=== PATIENT | male | born 1965 | race African-American/Black ===

== ENCOUNTER 2024-07-24 15:24 | Observation (INO) | payer BC, SELFPAY ==
[2024-07-24 15:58] VITALS: BMI 45.5
[2024-07-24 16:00] VITALS: O2SAT 96
[2024-07-24 16:10] VITALS: BP 154/100; PULSE 84; RESP 18; TEMP 36.9; O2SAT 97
--- NOTE | 2024-07-24 16:20 | ECHOCS_ITS ---
Reason For Study: CONGESTIVE HEART FAILURE Procedure This was a 2D Doppler, Color Flow transthoracic echocardiogram. The study was technically difficult. Contrast injection was performed. Exam performed portable in patient room. Left Ventricle Mild LV concentric hypertrophy. Mildly dilated left ventricular cavity. Generalized hypokinesis with moderate to severe LV systolic dysfunction. Estimated LVEF 35 to 40%. Right Ventricle Normal right ventricle. Atria The left atrium is severely enlarged. The right atrium is mildly enlarged. Mitral Valve Mild mitral annular calcification. Mild-Moderate (1-2+) mitral valve insufficiency. Tricuspid Valve Normal tricuspid valve. Aortic Valve The aortic valve is not well visualized in the short axis view. Aortic sclerosis, no stenosis. Pulmonic Valve The pulmonic valve is not well visualized. Great Vessels The aortic root is not well visualized. Pericardium/Pleural No pericardial effusion. Medication Diluted definity 3ml given slow IV push to enhance endocardial definition. MMode/2D Measurements & Calculations LVIDd: 6.1 cm IVSd: 1.5 cm LVOT diam: 2.2 cm LVIDs: 4.1 cm LVPWd: 1.3 cm RVDd: 4.4 cm FS: 32.9 % LVOT area: 3.8 cm2 asc Aorta Diam: 3.8 cm LAV(MOD-bp): 83.0 ml LVAd ap4: 50.6 cm2 LAV(MOD-bp) Indexed: 30.0 ml/m2 LVLd ap4: 9.4 cm LAV(MOD-sp2): 89.9 ml EDV(MOD-sp4): 218.5 ml LAV(MOD-sp4): 74.3 ml EDV(sp4-el): 230.4 ml LVAs ap4: 38.7 cm2 LVLs ap4: 8.7 cm ESV(MOD-sp4): 141.5 ml ESV(sp4-el): 145.4 ml EF(MOD-sp4): 35.2 % EF(sp4-el): 36.9 % LVAd ap2: 46.2 cm2 SV(MOD-sp4): 77.0 ml SV(MOD-sp2): 59.9 ml LVLd ap2: 8.8 cm SI(MOD-sp4): 27.8 ml/m2 SI(MOD-sp2): 21.6 ml/m2 EDV(MOD-sp2): 193.7 ml EDV(sp2-el): 205.3 ml LVAs ap2: 36.5 cm2 LVLs ap2: 8.2 cm ESV(MOD-sp2): 133.8 ml ESV(sp2-el): 138.6 ml EF(MOD-sp2): 30.9 % SV(sp4-el): 85.1 ml Ao sinus diam: 3.[address] Junction: 2.6 cm LA dimension(2D): 4.6 cm LA A4 area: 23.2 cm2 RA A4 area: 19.3 cm2 TAPSE: 2.2 cm Time Measurements MV dec time: 0.15 sec Doppler Measurements & Calculations MV E max sammy: 94.5 cm/sec Lat Peak E' Sammy: 6.0 cm/sec Med Peak E' Sammy: 8.5 cm/sec E/E' lat: 15.7 E/E' med: 11.2 Ao V2 max: 135.3 cm/sec LV V1 max: 98.3 cm/sec SV(LVOT): 67.3 ml Ao max P.6 mmHg LV V1 max P.9 mmHg Ao V2 mean: 105.2 cm/sec LV V1 mean P.5 mmHg Ao mean P.9 mmHg LV V1 mean: 76.7 cm/sec Ao V2 VTI: 23.7 cm LV V1 VTI: 17.5 cm AV (velocity ratio): 0.74 PITER(I,D): 2.8 cm2 PITER(V,D): 2.8 cm2 PA V2 max: 90.3 cm/sec ECHO/Echo Complete W/ Contrast Interpretation Summary Mild LV concentric hypertrophy. Mildly dilated left ventricular cavity. General ized hypokinesis with moderate to severe LV systolic dysfunction. Estimated LVEF 35 to 40%. The left atrium is severely enlarged. Mild-Moderate (1-2+) mitral valve insufficiency. Aortic sclerosis, no stenosis. The study was technically difficult. Ordering Physician: Antoinette John Referring Physician: Kemi Miranda D.O. Performed By: Stephanie Eller RDCS
--- NOTE | 2024-07-24 16:23 | EKG12_ITS ---
Test Reason : CHF Blood Pressure : */* mmHG Vent. Rate : 90 BPM Atrial Rate : 90 BPM P-R Int : 210 ms QRS Dur : 96 ms QT Int : 392 ms P-R-T Axes : 60 -42 83 degrees QTcB Int : 479 ms Sinus rhythm with 1st degree A-V block Left axis deviation Minimal voltage criteria for LVH, may be normal variant ( R in aVL ) Abnormal ECG Confirmed by Jus Caputo ([id number]), online editor SOL MOROCHO ([id number]) on 07/27/2024 12:21:54 PM Referred By: Antoinette John Confirmed By: Jus Caputo
[2024-07-24 16:29] VITALS: O2SAT 97
--- NOTE | 2024-07-24 17:17 | HP.PCM.HOS_ITS ---
[facility] - General General Date of Admission: 07/24/24 Date of Service: 07/24/24 Chief Complaint: Shortness of breath HPI Narrative CONSTANCE CORONADO, is a 58 M with past medical history of morbid obesity [BMI 45.5], VIELKA, hypertension, prediabetes, vitamin D deficiency, dyslipidemia, erectile dysfunction who was transferred from [place] ED for concerns regarding worsening shortness of breath for the last few weeks. Per the patient he has been noticing progressive shortness of breath with associated orthopnea and paroxysmal nocturnal dyspnea for the last 3 to 4 weeks. He has a history of VIELKA but has been inconsistently using his CPAP machine. He says he only started using it few days back. He is previously prescribed diuretics but was not taking them regularly. No history of coronary artery disease, does not smoke, no drug use, occasional alcohol use. In the [place] ED, his NT proBNP was elevated to 700s, high-sensitivity troponin was mildly elevated but did not increment on serial evaluation. Given the concerns for heart failure he was transferred to [facility] in the PCU. [facility] Medical History (Updated 07/24/24 @ 17:[address] Antoinette John MD) Diabetes Asthma CPAP (continuous positive airway pressure) dependence Sleep apnea Coronary artery disease Home Medications ?Medication ?Instructions ?Recorded ?Last Taken ?Type albuterol sulfate 2.5 mg/3 mL 2.5 mg inhalation Q6H PRN 07/24/24 Unknown History (0.083 %) solution for nebulization shortness of breath or wheezing albuterol sulfate 90 mcg/actuation 2 puff inhalation Q4H PRN PRN 07/24/24 Unknown History aerosol inhaler wheezing ergocalciferol (vitamin D2) 1,250 1,250 mcg PO QWEEK suppelemnt 07/24/24 Unknown History mcg (50,000 unit) capsule loratadine 10 mg tablet 10 mg PO DAILY allergies 07/24/24 Unknown History losartan 50 mg tablet 50 mg PO DAILY heart 07/24/24 Unknown History metformin 500 mg tablet,extended 500 mg PO DAILY diabetes 07/24/24 Unknown History release 24 hr rosuvastatin 10 mg tablet 10 mg PO QHS cholesterol 07/24/24 Unknown History sildenafil 100 mg tablet 50 - 100 mg PO Q24H PRN intercourse 07/24/24 Unknown History Allergy/AdvReac Type Severity Reaction Status Date / Time No Known Allergies Allergy Verified 07/24/24 16:01 Family History Other Diabetes Social History (Updated 07/24/24 @ 16:09 by Ruby Leiva) household members: spouse and family housing: house Smoking Status: Never smoker ROS Review of Systems ROS Unobtainable: Denies due to encephalopathy, due to endotracheal tube, due to mental condition, due to mental status or other Constitutional Constitutional: Reports change in weight, malaise and night sweats Eyes Eyes: Denies blurry vision, change in eye color, change in vision, discharge from eye(s), double vision, erythema, eye pain, loss of vision or other ENT HEENT: Denies abnormal hearing, dysphagia, ear pain, epistaxis, headache(s), hearing loss, nasal congestion, nasal discharge, post nasal drip, sinus pressure, sore throat or other Cardiovascular Cardiovascular: Reports dyspnea on exertion, edema and lightheadedness Respiratory/Chest Respiratory/Chest: Denies cough, dyspnea, excessive phlegm production, hemoptysis, productive cough, shortness of breath at rest, shortness of breath with exertion, wheezing or other Gastrointestinal Gastrointestinal: Denies abdominal pain, coffee ground emesis, constipation, diarrhea, dyspepsia, hematemesis, hematochezia, loose stools, melena, nausea, vomiting or other Genitourinary Genitourinary: Denies burning urination, difficulty urinating, dysuria, hematuria, nocturia, urinary frequency, urinary hesitancy, urinary incontinence, urinary urgency or other Musculoskeletal Musculoskeletal: Denies arthralgias, back pain, joint pain, joint stiffness, joint swelling, myalgias, neck pain or other Neurologic Neurologic: Denies abnormal gait, abnormal speech, confusion, disequilibrium, dizziness, focal weakness, headache(s), numbness, paresthesias, seizure-like activity, seizures, syncope, tingling, tremor(s) or other Psychiatric Psychiatric: Denies anxiety, depression, homicidal ideation, suicidal ideation or other Endocrine Endocrinology: Denies change in body appearance, cold intolerance, excessive sweating, heat intolerance, polydipsia, polyuria or other Hematologic/Lymphatic Hematologic/Lymphatic: Denies anemia, easy bleeding, easy bruising, lymphadenopathy or other Allergic/Immunologic Allergic/Immunologic: Denies rhinitis, hives, eczemia, asthma or other Vital Signs Vital Signs Vital Signs: 07/24/24 16:00 07/24/24 16:10 07/24/24 16:29 Temperature 98.5 F Temperature Source Oral Pulse Rate 84 Respiratory Rate 18 Respiratory Effort Non-Labored Respiratory Depth Deep Respiratory Pattern Tachypnea Blood Pressure 154/100 H Blood Pressure Mean 118 Blood Pressure Source Monitor Blood Pressure Position Semi-Fowlers Blood Pressure Location Right Arm Pulse Ox 96 97 97 Oxygen Delivery Method Nasal Cannula Room Air Room Air Oxygen Flow Rate (L/min) 2 Weight Weight: 354 lb 11.58 oz Body Mass Index (BMI) 45.5 Physical Exam Const alert, oriented x3 and no apparent distress HEENT normocephalic Neck no lymphadenopathy Resp Resp Narrative: Breath sounds are in bilaterally diminished, no crepitations heard Cardio regular rate and regular rhythm Cardio Narrative: No murmurs no JVD Extremity Extremity Narrative: Mild bilateral pedal edema Neuro oriented x3, CN's II-XII intact bilaterally, moves all extremities and no focal motor deficits Psych affect normal Results Medical Records Data Attestation: I reviewed the patient's medical records Lab / Micro Data Attestation: I reviewed the patient's lab results. Assessment & Plan Assessment/Plan (1) Shortness of breath: PLAN: Plan 58-year-old gentleman with history of morbid obesity, VIELKA, is being admitted for further evaluation of shortness of breath. Given his presentation and elevated NT proBNP levels likely reason is acute decompensated heart failure. The precipitating event could be his underlying VIELKA, there are no features of arrhythmia/ischemic pathology at this time. Other reason to be hypertensive heart disease #Acute heart failure -Received IV Lasix 40 mg in [place] ED -IV Lasix 40 mg tomorrow morning -Repeat proBNP levels -Echocardiogram for evaluation of cardiac function -Salt restricted heart healthy diet -Cardiology referral versus outpatient consultation based on echocardiogram findings -COVID swab, influenza swab #VIELKA -Restart home CPAP therapy while admitted -Further evaluation with sleep study at the time of/after discharge #Obesity -Outpatient evaluation for weight loss management #Prediabetes -HbA1c levels -Close monitoring of blood sugars -Hold outpatient metformin #Hypertension -Continue losartan 50 mg daily [home medication #DVT prophylaxis -Enoxaparin 40 mg twice daily -Encourage mobilization
[2024-07-24 17:23] LABS: BNP,B-Type NATRIURETIC PEPTIDE 168.2 pg/mL (0-100)
[2024-07-24 19:55] VITALS: BP 158/100; PULSE 100; RESP 18; TEMP 36.6; O2SAT 98
[2024-07-24] MEDS: Atorvastatin Calcium 20 MG Tablet PO (21:39)
[2024-07-24] MEDS: Enoxaparin 40 MG/0.4 ML Syringe SC (21:39)
[2024-07-24 23:05] VITALS: PULSE 86; RESP 16; O2SAT 97
[2024-07-24] MEDS: Albuterol 2.5 MG/3 ML VIAL.NEB. INHALATION (23:05)
[2024-07-24 23:15] VITALS: PULSE 88; RESP 18; O2SAT 95
[2024-07-25 02:00] VITALS: PULSE 82; RESP 32; O2SAT 93
[2024-07-25 02:15] VITALS: BP 134/91; PULSE 86; RESP 18; TEMP 36.7; O2SAT 97
[2024-07-25 02:54] VITALS: BMI 45.4
[2024-07-25 07:14] LABS: Absolute Lymphocyte Count 2.15 X10^3/uL (0.83-4.51); Absolute Neutrophil Count 4.4 X10^3/uL (2.0-7.7); Basophil# 0.04 X10^3/uL; Basophil% 0.5 % (0-1); Eosinophil# 0.29 X10^3/uL; Eosinophils% 3.8 % (0-5); Hematocrit 45.6 % (40-54); Hemoglobin 14.4 g/dL (13.0-16.5); Lymphocyte # 2.15 X10^3/ul (0.83-4.51); Mean Corp Hgb Conc 31.6 g/dL (32-36); Mean Corpuscular Hgb 27.9 pg (27.0-32.0); Mean Corpuscular Volume 88.4 fL (80-94); Mean Platelet Vol. 9.2 fl (6.2-12.0); Monocyte# 0.75 X10^3/uL; Monocyte% 9.8 % (0-10); NRBC Flagged by Analyzer 0 % (0-5); Neutrophil # 4.44 X10^3/uL (2.7-7.7); Neutrophil % 57.6 % (47-70); Platelet Count 298 K/mm3 (150-450); RBC Distribution Width CV 13.2 % (11.6-14.6); RBC Distribution Width SD 42.5 fl (35.1-43.9); Red Blood Count 5.16 M/mm3 (4.6-6.2); White Blood Count 7.7 K/mm3 (4.4-11.0)
[2024-07-25 07:38] LABS: ALB/GLOB Ratio 0.9 RATIO (0.9-2.4); AST(SGOT) 21 U/L (15-37); Alanine Aminotransfer ALT/SGPT 46 U/L (16-61); Albumin, Serum 3.1 g/dL (3.2-5.0); Alkaline Phosphatase 60 U/L (45-117); Anion Gap 3 (5-15); BUN 13 mg/dL (7-18); Bilirubin, Direct 0.25 mg/dL (0.00-0.30); Calcium,Total 8.5 mg/dL (8.5-10.1); Chloride 106 mmol/L (98-107); Cholesterol 114 mg/dL (200); Creatinine, Serum 1.18 mg/dL (0.70-1.30); EST Glomerular Filtration Rate 67 mL/min (>60); Est Glom Filt Rate - Afr Amer 81 mL/min (>60); Estimated Creatinine Clearance 109.56 ml/min; Globulin 3.5 g/dL (2.2-4.2); Glucose 145 mg/dL (74-106); High Density Lipoprotein 32 mg/dL; Magnesium 2.1 mg/dL (1.6-2.6); Phosphorus 3.9 mg/dL (2.5-4.9); Potassium 4.1 mmol/L (3.5-5.1); Protein, Total 6.6 g/dL (6.4-8.2); Sodium Level 139 mmol/L (136-145); Triglycerides 88 mg/dL; Very Low Density Lipoprotein 18 mg/dL (5-40)
--- NOTE | 2024-07-25 07:51 | PN.HOSP_ITS ---
Reason for Visit Reason for Visit: Diagnoses Shortness of breath (07/24/24) Subjective Subjective Breathing well. Had been short of breath 3 weeks prior to presentation. Objective Data Objective Data Vital Signs: Vital Signs Temp Pulse Resp BP Pulse Ox O2 Del Method O2 Flow Rate 36.7 C 86 18 134/91 H 97 CPAP 2 07/25/24 02:15 07/25/24 02:15 07/25/24 02:15 07/25/24 02:15 07/25/24 02:15 07/25/24 02:15 07/24/24 23:05 FiO2 21 07/25/24 02:00 Oxygen Flow Rate (L/min) 2 Oxygen Delivery Method CPAP Weight: 160.5 kg Body Mass Index (BMI) 45.4 Intake & Output: Intake and Output for Last 24 Hours 07/23/24 07/24/24 07/25/24 23:59 23:59 23:59 Intake Total 595 / 595 120 / 120 Output Total 900 / 900 Balance -305 / -305 120 / 120 Lab / Micro Data 07/25/24 06:35 07/25/24 06:35 Labs: Laboratory Results - last 24 hr 07/24/24 16:40: B-Natriuretic Peptide 168.2 H 07/25/24 06:35: WBC 7.7, RBC 5.16, Hgb 14.4, Hct 45.6, MCV 88.4, MCH 27.9, MCHC 31.6 L, RDW Std Deviation 42.5, RDW Coeff of Leigh Ann 13.2, Plt Count 298, MPV 9.2, Immature Gran % (Auto) 0.300, Neut % (Auto) 57.6, Lymph % (Auto) 28.0, Bennett % (Auto) 9.8, Eos % (Auto) 3.8, Baso % (Auto) 0.5, Absolute Neuts (auto) 4.4, Absolute Lymphs (auto) 2.15, Nucleated RBC % 0, Sodium 139, Potassium 4.1, Chloride 106, Carbon Dioxide 30.0, Anion Gap 3 L, BUN 13, Creatinine 1.18, Estim Creat Clear Calc 109.56, Est GFR (MDRD) Af Amer 81, Est GFR (MDRD) Non-Af 67, BUN/Creatinine Ratio 11.0, Glucose 145 H, Calcium 8.5, Phosphorus 3.9, Magnesium 2.1, Total Bilirubin 0.90, Direct Bilirubin 0.25, AST 21, ALT 46, Alkaline Phosphatase 60, Total Protein 6.6, Albumin 3.1 L, Globulin 3.5, Albumin/Globulin Ratio 0.9, Triglycerides 88, Cholesterol 114, LDL Cholesterol 64, VLDL Cholesterol 18, HDL Cholesterol 32 L, TSH 1.060 Micro: Microbiology 07/24/24 16:31 Mucosa - Nasopharyngeal Coronavirus COVID-19 PCR - Final Physical Exam Const alert and no apparent distress Constitutional Narrative: no respiratory distress. no conversational dyspnea. HEENT head/scalp atraumatic and moist oral mucous membranes Resp normal respiratory effort, no retractions, no use of accessory muscles and clear to auscultation bilaterally Cardio regular rate, regular rhythm, S1 normal heart sound and S2 normal heart sound GI normal to inspection, nondistended, normoactive bowel sounds, soft to palpation and non-tender Extremity normal to inspection and no clubbing, cyanosis or edema Neuro Sensorium / Orientation: awake and alert Assessment & Plan Assessment/Plan (1) Shortness of breath: PLAN: Plan Acute HFrEF * IV furosemide * Echo shows and EF of 35-40%. No prior in [employer]. [email or web address] is not functioning at this time, though the patient denies prior cardiac history. * Already on losartan 50/d, Start carvedilol 07/26 * Fluid restrict. * Follow up with cardiology. CHronic conditions: * VIELKA-Restart home CPAP therapy while admitted-Further evaluation with sleep study at the time of/after discharge * Obesity-Outpatient evaluation for weight loss management * Prediabetes-HbA1c levels-Close monitoring of blood sugars-Hold outpatient metformin * Hypertension-Continue losartan 50 mg daily [home medication DVT prophylaxis-Enoxaparin 40 mg twice daily Charges/Coding Visit Charges Inpatient E&M: 01063 Subs Hosp L2
[2024-07-25 07:53] VITALS: O2SAT 95
[2024-07-25 08:07] VITALS: BP 145/86; PULSE 67; RESP 18; TEMP 36.6; O2SAT 95
[2024-07-25 08:31] LABS: International Normalized Ratio 1.1; Prothrombin Time (Protime)PT. 14.2 SECONDS (11.7-14.9)
[2024-07-25] MEDS: Furosemide 40 MG/4 ML Vial IV (09:03)
[2024-07-25] MEDS: Enoxaparin 40 MG/0.4 ML Syringe SC ×2 (09:03→20:22)
[2024-07-25] MEDS: Loratadine 10 MG Tablet PO (09:03)
[2024-07-25] MEDS: Losartan Potassium 50 MG Tablet PO (09:03)
[2024-07-25] MEDS: FLU VACC 2024-25(6MOS UP)/PF 45 MCG/0.5 ML SYRINGE IM (12:41)
[2024-07-25 14:07] VITALS: BP 138/78; PULSE 88; RESP 18; TEMP 36.9; O2SAT 96
[2024-07-25 20:07] VITALS: BP 153/91; PULSE 74; RESP 20; TEMP 36.6; O2SAT 95
[2024-07-25] MEDS: Atorvastatin Calcium 20 MG Tablet PO (20:22)
[2024-07-26] VITALS: PULSE 82; RESP 32; O2SAT 92
[2024-07-26 03:00] VITALS: BP 150/97; PULSE 85; RESP 16; TEMP 36.6; O2SAT 100
[2024-07-26 06:00] VITALS: BMI 44.7
[2024-07-26 07:00] VITALS: PULSE 86
[2024-07-26 07:15] VITALS: O2SAT 95
[2024-07-26 08:00] LABS: Anion Gap 4 (5-15); BUN 13 mg/dL (7-18); BUN/Creat Ratio 10.4 RATIO (10-20); Calcium,Total 8.9 mg/dL (8.5-10.1); Chloride 102 mmol/L (98-107); Creatinine, Serum 1.25 mg/dL (0.70-1.30); EST Glomerular Filtration Rate 63 mL/min (>60); Est Glom Filt Rate - Afr Amer 76 mL/min (>60); Estimated Creatinine Clearance 102.59 ml/min; Glucose 141 mg/dL (74-106); Potassium 4.2 mmol/L (3.5-5.1); Sodium Level 139 mmol/L (136-145)
--- NOTE | 2024-07-26 08:09 | PN.HOSP_ITS ---
Reason for Visit Reason for Visit: Diagnoses Shortness of breath (07/24/24) Subjective Subjective Feeling well. No shortness of breath. Did not sleep well last night. Objective Data Objective Data Vital Signs: Vital Signs Temp Pulse Resp BP Pulse Ox O2 Del Method O2 Flow Rate 36.6 C 85 16 150/97 H 95 Room Air 2 07/26/24 03:00 07/26/24 03:00 07/26/24 03:00 07/26/24 03:00 07/26/24 07:15 07/26/24 07:15 07/26/24 03:00 FiO2 21 07/26/24 00:00 Oxygen Flow Rate (L/min) 2 Oxygen Delivery Method Room Air Weight: 158.2 kg Body Mass Index (BMI) 44.7 Intake & Output: Intake and Output for Last 24 Hours 07/24/24 07/25/24 07/26/24 23:59 23:59 23:59 Intake Total 595 / 595 480 / 720 360 / 360 Output Total 900 / 900 1050 / 1050 Balance -305 / -305 480 / 720 -690 / -690 Lab / Micro Data 07/25/24 06:35 07/26/24 06:00 Labs: Laboratory Results - last 24 hr 07/25/24 06:35: PT 14.2, INR 1.1 07/26/24 06:00: Sodium 139, Potassium 4.2, Chloride 102, Carbon Dioxide 33.0 H, Anion Gap 4 L, BUN 13, Creatinine 1.25, Estim Creat Clear Calc 102.59, Est GFR (MDRD) Af Amer 76, Est GFR (MDRD) Non-Af 63, BUN/Creatinine Ratio 10.4, Glucose 141 H, Calcium 8.9 Micro: Microbiology 07/24/24 16:31 Mucosa - Nasopharyngeal Coronavirus COVID-19 PCR - Final Radiography Diagnostic Testing: Radiology Impression Echocardiogram 07/24/24 16:20 Interpretation Summary Mild LV concentric hypertrophy. Mildly dilated left ventricular cavity. Generalized hypokinesis with moderate to severe LV systolic dysfunction. Estimated LVEF 35 to 40%. The left atrium is severely enlarged. Mild-Moderate (1-2+) mitral valve insufficiency. Aortic sclerosis, no stenosis. The study was technically difficult. Ordering Physician: Antoinette John Referring Physician: Kemi Miranda D.O. Performed By: Stephanie Eller RDCS Physical Exam Const alert and no apparent distress HEENT head/scalp atraumatic and moist oral mucous membranes Resp normal respiratory effort, no retractions, no use of accessory muscles and clear to auscultation bilaterally Cardio regular rate, regular rhythm, S1 normal heart sound and S2 normal heart sound GI normal to inspection, nondistended, normoactive bowel sounds Assessment & Plan Assessment/Plan (1) Shortness of breath: PLAN: Plan Acute HFrEF * change IV furosemide to PO * Echo shows and EF of 35-40%. No prior in [employer]. [employer] is not functioning at this time, though the patient denies prior cardiac history. * Already on losartan 50/d, Start carvedilol 07/26. Start empagliflozin. * Fluid restrict. * Follow up with cardiology as outpt. CHronic conditions: * VIELKA-Restart home CPAP therapy while admitted-Further evaluation with sleep study at the time of/after discharge * Obesity-Outpatient evaluation for weight loss management * Prediabetes-HbA1c levels-Close monitoring of blood sugars-Hold outpatient metformin * Hypertension-Continue losartan 50 mg daily [home medication DVT prophylaxis-Enoxaparin 40 mg twice daily
[2024-07-26 08:10] VITALS: O2SAT 92; O2SAT 96
[2024-07-26 08:47] VITALS: BP 125/92; PULSE 90; RESP 20; TEMP 36.3; O2SAT 97
[2024-07-26] MEDS: Losartan Potassium 50 MG Tablet PO (08:53)
[2024-07-26] MEDS: Enoxaparin 40 MG/0.4 ML Syringe SC (08:53)
[2024-07-26] MEDS: Furosemide 40 MG/4 ML Vial IV (08:53)
[2024-07-26] MEDS: Loratadine 10 MG Tablet PO (08:53)
[2024-07-26] MEDS: Carvedilol 3.125 MG TABLET PO (09:18)
--- NOTE | 2024-07-26 10:45 | DS.PCM_ITS ---
Providers Date of Admission: 07/24/24 Primary Care Physician: Dr. Kemi Miranda, DO Reason For Visit: HEART FAILURE EXACERBATION Diagnosis Discharge Diagnosis (1) Shortness of breath: Status: Acute Code(s): R06.02 - Shortness of breath Plan Acute HFrEF * change IV furosemide to PO * Echo shows and EF of 35-40%. No prior in [employer]. [employer] is not functioning at this time, though the patient denies prior cardiac history. * Already on losartan 50/d, Start carvedilol 07/26. Start empagliflozin. * Fluid restrict. * Follow up with cardiology as outpt. CHronic conditions: * VIELKA-Restart home CPAP therapy while admitted-Further evaluation with sleep study at the time of/after discharge * Obesity-Outpatient evaluation for weight loss management * Prediabetes-HbA1c levels-Close monitoring of blood sugars-Hold outpatient metformin * Hypertension-Continue losartan 50 mg daily [home medication DVT prophylaxis-Enoxaparin 40 mg twice daily Medications at Discharge Home Medications albuterol sulfate 2.5 mg/3 mL (0.083 %) solution for nebulization 2.5 mg inhalation Q6H PRN shortness of breath or wheezing 07/24/24 albuterol sulfate 90 mcg/actuation aerosol inhaler 2 puff inhalation Q4H PRN PRN wheezing 07/24/24 ergocalciferol (vitamin D2) 1,250 mcg (50,000 unit) capsule 1,250 mcg PO QWEEK suppelemnt 07/24/24 loratadine 10 mg tablet 10 mg PO DAILY allergies 07/24/24 losartan 50 mg tablet 50 mg PO DAILY heart 07/24/24 rosuvastatin 10 mg tablet 10 mg PO QHS cholesterol 07/24/24 sildenafil 100 mg tablet 50 - 100 mg PO Q24H PRN intercourse 07/24/24 carvedilol 3.125 mg tablet 3.125 mg PO BID #60 tabs 07/26/24 empagliflozin 10 mg tablet 10 mg PO DAILY #30 tabs 07/26/24 furosemide 40 mg tablet 40 mg PO DAILY #30 tabs 07/26/24 Hospital Course Operations None Procedures 2-D Echocardiogram Summary of Care Provided Minutes Spent on Discharge: 32 Hospital Course: Pt presents from outside hospitaal with shortness of breath. CXR at that facility showed pulmonary edema. Pt was transferred to [facility] for further mgmt. He was started on IV furosemide and he has felt better and did not require oxygen. Echo showed an EF of 35-40%. I discussed with Dr. Sanchez who did not feel acute inpatient coronary cath would be necessary and recommended outpt follow up. Pt doing well. He will be discharge to continue his losartan. Furosemide, empagliflozin, carvedilol will be added to his regimen. Weight / BMI Weight Weight: 158.2 kg Body Mass Index (BMI) 44.7 ABG / Lab / Microbiology Data 07/25/24 06:35 07/26/24 06:00 Laboratory: Laboratory Results - last 24 hr 07/26/24 06:00: Sodium 139, Potassium 4.2, Chloride 102, Carbon Dioxide 33.0 H, Anion Gap 4 L, BUN 13, Creatinine 1.25, Estim Creat Clear Calc 102.59, Est GFR (MDRD) Af Amer 76, Est GFR (MDRD) Non-Af 63, BUN/Creatinine Ratio 10.4, Glucose 141 H, Calcium 8.9 Microbiology: Microbiology 07/24/24 16:31 Mucosa - Nasopharyngeal Coronavirus COVID-19 PCR - Final D/C Instructions Discharge Diet: - (1.5 liters of fluid/day. 2 gram salt/day. ) Return to work on: 07/27/24 DC O2, CPAP, BIPAP Needs PSN CPAP & BiPAP: BiPAP & CPAP Settings per PSN Mode CPAP 07/26/24 00:00 Bipap Delivery Device Face Mask 07/26/24 00:00 BiPAP Expiratory Pressure 14 07/26/24 00:00 Fraction of Inspired Oxygen ( 21 07/26/24 00:00 FIO2) Additional Home O2 Discharge instructions: No DC home with Oxygen: No Meaningful Use Info Meaningful Use Meaningful Use Diagnoses (Choose all that apply): CHF CHF KIMBERLY/ARB ordered at discharge?: Yes Documented LVEF (%): 35 Ischemic Stroke Statin Dosing Therapy Reference: STATIN DOSE THERAPY REFERENCE: * Patients > 75 years receive moderate or high dose statin therapy. * Patients 75 years or YOUNGER should receive HIGH intensity statin dose unless contraindicated. You will be required to document reason for non-treatment if statin daily dose does not meet guidelines. HIGH DOSE STATIN THERAPY DAILY Atorvastatin > than or = to 40 mg Rosuvastatin > than or = to 20 mg Amlodipine + Atorvastatin > than or = to 2.5/40 mg Ezetimibe + Simvastatin 1080 mg Simvastatin 80mg Discharge Plan Admission Admit Date/Time: 07/24/24 15:24 Primary Reason for Your Visit: congestive heart failure exacerbation Attending Provider: Gideon Redding Primary Care Provider: Kemi Miranda Consulting Providers: Antoinette John Instructions Patient Instructions: Heart Failure Meds, Heart Failure Flare Up Signs, Heart Failure Make Changes Diet, Heart Failure Dc, Heart Failure Care, Heart Failure and Physical Activity, Heart Failure Discharge Orders/Prescriptions Prescriptions: New carvedilol 3.125 mg Tablet 3.125 mg PO BID Qty: 60 0RF furosemide 40 mg tablet 40 mg PO DAILY Qty: 30 0RF empagliflozin 10 mg tablet 10 mg PO DAILY Qty: 30 0RF Continued albuterol sulfate 2.5 mg /3 mL (0.083 %) solution for nebulization 2.5 mg inhalation Q6H PRN (Reason: shortness of breath or wheezing) Patient Comments: PLEASE SEE ATTACHED FOR DETAILED DIRECTIONS ergocalciferol (vitamin D2) 1,250 mcg (50,000 unit) capsule 1,250 mcg PO QWEEK albuterol sulfate 90 mcg/actuation HFA aerosol inhaler 2 puff inhalation Q4H PRN PRN (Reason: wheezing) loratadine 10 mg tablet 10 mg PO DAILY rosuvastatin 10 mg tablet 10 mg PO QHS sildenafil 100 mg tablet 50 - 100 mg PO Q24H PRN (Reason: intercourse) losartan 50 mg tablet 50 mg PO DAILY Discontinued metformin 500 mg tablet extended release 24 hr 500 mg PO DAILY Referrals / Follow Up: [facility] [Provider Group] - Within 1 Month Kemi Miranda DO [Primary Care Provider] - Within 2 Weeks Disposition Disposition (needs filled in before D/C Order can be placed): Home, Self Care Charges/Coding Visit Charges Inpatient E&M: 73853 Disch Hosp >30min
== END 2024-07-26 10:56 | disposition home or self-care (01) ==
PROVIDERS: Admitting Provider Internal Medicine; PCP Internal Medicine; Referring Provider Internal Medicine
DX: I11.0 Hypertensive heart disease with heart failure (principal); I50.21 Acute systolic (congestive) heart failure; E66.01 Morbid (severe) obesity due to excess calories; Z68.42 Body mass index [BMI] 45.0-49.9, adult; I25.10 Atherosclerotic heart disease of native coronary artery without angina pectoris; E78.5 Hyperlipidemia, unspecified; Z23 Encounter for immunization; R73.03 Prediabetes; J45.909 Unspecified asthma, uncomplicated; G47.33 Obstructive sleep apnea (adult) (pediatric); Z79.899 Other long term (current) drug therapy; Z79.84 Long term (current) use of oral hypoglycemic drugs
CPT/HCPCS: 36415; 80048; 80053; 80061; 82248; 83735; 83880; 84100; 84443; 85025; 85610; 87635; 90656; 93005; 93306; 94640; 94660; 96372; 96374; 96376; 97802; 99221; 99252; Q9957; C8929; G0378; G0379; G0463; J1940

== ENCOUNTER 2025-01-15 12:06 | Emergency (ER) | payer BC, SELFPAY ==
[2025-01-15 12:07] VITALS: BP 154/104; PULSE 73; RESP 18; TEMP 36.6; O2SAT 97
[2025-01-15 12:12] VITALS: BMI 46.5
[2025-01-15 12:15] VITALS: O2SAT 94
--- NOTE | 2025-01-15 12:32 | EKG12_ITS ---
Test Reason : Blood Pressure : */* mmHG Vent. Rate : 58 BPM Atrial Rate : 58 BPM P-R Int : 224 ms QRS Dur : 104 ms QT Int : 436 ms P-R-T Axes : 60 -38 204 degrees QTcB Int : 428 ms Sinus bradycardia with 1st degree A-V block with Premature atrial complexes Left axis deviation T wave abnormality, consider lateral ischemia Abnormal ECG Confirmed by AIDA MORENO, ELIGIO ([id number]), editorial specialist SOL MOROCHO ([id number]) on 01/19/2025 7:03:47 AM Referred By: Confirmed By: ELIGIO PARRA MD
--- NOTE | 2025-01-15 12:32 | EKG12_ITS ---
Test Reason : Blood Pressure : */* mmHG Vent. Rate : 58 BPM Atrial Rate : 58 BPM P-R Int : 224 ms QRS Dur : 104 ms QT Int : 436 ms P-R-T Axes : 60 -38 204 degrees QTcB Int : 428 ms Sinus bradycardia with 1st degree A-V block with Premature atrial complexes Left axis deviation T wave abnormality, consider lateral ischemia Abnormal ECG Confirmed by AIDA MORENO, ELIGIO ([id number]), photographic editor SOL MOROCHO ([id number]) on 01/19/2025 7:03:47 AM Referred By: Confirmed By: ELIGIO PARRA MD
--- NOTE | 2025-01-15 12:33 | ED.VIS.DYS ---
HPI History of Present Illness Chief Complaint: Shortness of Breath Informant: patient Narrative Narrative: Sent in from pulmonary office after first visit today. Sleep apnea previous sleep study with CPAP. He states diagnosed with new cardiomyopathy after . He was placed on Lasix. He states follow-up with cardiology through [facility] has Lasix increased to twice a day for which he is on 40 mg. He ran out approximately 10 days ago there is no refills. Denies chest or abdominal pain. He states he has had a heart cath since then that was negative. He does not swell in the leg states 15 pound weight gain since running out of his Lasix. No cough. He denies orthopnea. He sleeps on his side due to his CPAP machine. Prior similar symptoms: Yes PFSH PFSH Medical History Obesity Hyperlipidemia HFrEF (heart failure with reduced ejection fraction) Erectile dysfunction Essential (primary) hypertension Diabetes Asthma CPAP (continuous positive airway pressure) dependence Sleep apnea Coronary artery disease Medical History no medical history Home Medications ?Medication ?Instructions ?Recorded ?Last Taken ?Type albuterol sulfate 90 mcg/actuation 2 puff inhalation Q4H PRN wheezing 07/24/24 Unknown History aerosol inhaler ergocalciferol (vitamin D2) 1,250 1,250 mcg PO QWEEK supplement 07/24/24 01/15/25 History mcg (50,000 unit) capsule loratadine 10 mg tablet 10 mg PO DAILY allergies 07/24/24 01/15/25 History losartan 50 mg tablet 50 mg PO DAILY blood pressure 07/24/24 01/15/25 History rosuvastatin 10 mg tablet 10 mg PO QHS cholesterol 07/24/24 Unknown History empagliflozin 10 mg tablet 10 mg PO DAILY #30 tabs 07/26/24 01/15/25 Rx furosemide 40 mg tablet 40 mg PO DAILY #30 tabs 07/26/24 01/15/25 Rx metformin 500 mg tablet,extended 500 mg PO DAILY 08/05/24 01/15/25 History release 24 hr trazodone 50 mg tablet 50 mg PO QHS 08/05/24 01/14/25 History carvedilol 12.5 mg tablet 12.5 mg PO BID 01/15/25 01/15/25 History furosemide 40 mg tablet (Lasix) 40 mg PO BID #60 tabs 01/15/25 Unknown Rx rosuvastatin 20 mg tablet 20 mg PO QHS 01/15/25 01/14/25 History Allergy/AdvReac Type Severity Reaction Status Date / Time No Known Allergies Allergy Verified 01/15/25 12:07 Family History Mother Diabetes Father COPD (chronic obstructive pulmonary disease) Surgical History No history of previous surgery Social History household members: spouse and family housing: house Smoking Status: Smoker, status unknown alcohol intake: current alcohol intake frequency: holidays/special occasions only substance use type: marijuana ROS ROS ED Constitutional Constitutional ED: Denies chills, fever(s) or sweats ENT ENT ED: Denies sore throat Cardiovascular Cardiovascular: Denies chest pain, leg edema, palpitations or racing heartbeat Respiratory/Chest Respiratory/Chest: Reports dyspnea; Denies cough or dyspnea on exertion Gastrointestinal Gastrointestinal: Denies abdominal pain, diarrhea, nausea or vomiting Genitourinary Genitourinary ED: Denies dysuria, hematuria or urinary frequency Musculoskeletal Musculoskeletal: Denies back pain, extremity pain or neck pain Integumentary Denies rash or wounds Neurologic Neurologic: Denies headache(s), paresthesias or weakness EXAM Physical Exam Const Vital Signs: 01/15/25 12:07 01/15/25 12:15 01/15/25 13:06 Temperature 97.9 F Temperature Source Oral Pulse Rate 73 71 Respiratory Rate 18 28 H Respiratory Effort Short of Breath Labored Respiratory Depth Normal Respiratory Pattern Normal Blood Pressure 154/104 H 143/67 H Blood Pressure Mean 120 92 Pulse Ox 97 95 Oxygen Delivery Method Room Air Room Air Room Air 01/15/25 13:58 Temperature 98.3 F Temperature Source Pulse Rate 76 Respiratory Rate 24 H Respiratory Effort Respiratory Depth Respiratory Pattern Blood Pressure 136/74 H Blood Pressure Mean 94 Pulse Ox 96 Oxygen Delivery Method Positive well nourished and well developed General Appearance ED: well developed and NAD HEENT Reports moist mucous membranes normocephalic and atraumatic Eyes General Eye ED: Yes normal appearance of both eyes Neck full ROM Chest Wall Chest: Negative for tenderness Resp normal respiratory effort and normal air movement Effort and Inspection: symmetric chest movement; Negative for respiratory distress Cardio regular rate, regular rhythm and no murmurs Peripheral Pulses: pulses 2+ throughout GI normal to inspection, nondistended, normoactive bowel sounds and non-tender Palpation: Negative for guarding or rebound tenderness present Extremity normal to inspection General Extremety ED: Negative for edema or tenderness General Extremity: Negative for edema Neuro oriented x3 and no sensory deficits noted Sensorium / Orientation: awake and alert Skin no rashes or lesions noted and no wounds MDM MDM MDM Narrative Medical decision making narrative: Interventions / MDM: Differential diagnosis: History of cardiomyopathy, weight gain Diagnosis considered but do not suspect: CHF exacerbation however no pulmonary edema no hypoxia. My EKG interpretation: N/A Imaging independently reviewed and interpreted by myself: 2 view chest x-ray: No acute process. External documents reviewed: Echocardiogram June 2024 EF of 35 to 40%. There was a heart cath recorded September 2024 performed at [facility] nonobstructive coronary disease only minimal irregularities of the LAD and RCA. Test considered but not ordered:N/A ED course: Patient vital stable pulse ox 97 on room air no Rester distress. Since running out of his diuretics 15 pound weight gain. No orthopnea. I will check EKG chest x-ray and basic labs. Will plan on restarting his diuretics. Labs are stable. He started on Lasix given dose IV in the ED. I did refill this prescription for 1 month. Discussed with patient importance of follow-up with cardiology PCP team for continued refills and reevaluation. Return precautions. All questions were answered. Re-evaluation: stable Disposition discussed with patient/family/significant other: Patient Case discussed with consulting clinician: N/A This note was generated with [employer] dictation software. It may contain incorrect words, spelling, and punctuation that were not noted in checking the note before signing. Lab Data Attestation: I reviewed the patient's lab results. Labs: Laboratory Results - last 24 hr 01/15/25 12:16 WBC 7.6 RBC 5.47 Hgb 16.5 Hct 49.0 MCV 89.6 MCH 30.2 MCHC 33.7 RDW Std Deviation 43.4 RDW Coeff of Leigh Ann 13.3 Plt Count 299 MPV 9.3 Immature Gran % (Auto) 0.500 Neut % (Auto) 55.6 Lymph % (Auto) 28.8 [place] % (Auto) 11.2 H Eos % (Auto) 3.4 Baso % (Auto) 0.5 Absolute Neuts (auto) 4.2 Absolute Lymphs (auto) 2.18 Nucleated RBC % 0.3 Sodium 138 Potassium 4.5 Chloride 103 Carbon Dioxide 24.7 Anion Gap 11 BUN 16 Creatinine 1.20 Estim Creat Clear Calc 110.86 Est GFR (MDRD) Non-Af 70 BUN/Creatinine Ratio 13.3 Glucose 176 H Calcium 9.3 Radiography Diagnostic Testing: Clinical Impression(s) from Imaging Studies Chest X-Ray 01/15/25 12:54 IMPRESSION: No acute cardiopulmonary process. Reading Location: [facility] Discharge Plan Triage Chief Complaint: Shortness of Breath ED Provider: Adriano Jack Dx/Rx/DC Orders Clinical Impression: CHF (congestive heart failure), Weight gain Instructions: Cardiomyopathy Dc Prescriptions: New furosemide [Lasix] 40 mg tablet 40 mg PO BID Qty: 60 0RF No Action metformin 500 mg tablet extended release 24 hr 500 mg PO DAILY trazodone 50 mg tablet 50 mg PO QHS ergocalciferol (vitamin D2) 1,250 mcg (50,000 unit) capsule 1,250 mcg PO QWEEK Patient Comments: PT TAKES ON SATURDAY albuterol sulfate 90 mcg/actuation HFA aerosol inhaler 2 puff inhalation Q4H PRN (Reason: wheezing) loratadine 10 mg tablet 10 mg PO DAILY rosuvastatin 10 mg tablet 10 mg PO QHS losartan 50 mg tablet 50 mg PO DAILY furosemide 40 mg tablet 40 mg PO DAILY Qty: 30 0RF empagliflozin 10 mg tablet 10 mg PO DAILY Qty: 30 0RF carvedilol 12.5 mg tablet 12.5 mg PO BID rosuvastatin 20 mg tablet 20 mg PO QHS Primary Care Provider: Effie Veloz Referrals: NOT,DEFINED [Non-Staff] - Activity Restrictions/Additional Instructions: Your chest x-ray normal, no effusion. Labs normal creatinine 1.2 stable from previous. EKG normal. Take water pill as prescribed. Call and follow-up with your cardiology team for continued management. Continue to monitor your weight. Print Language: Mohawk Disposition Disposition: Home, Self Care Discharge Date/Time: 01/15/25 13:59
[2025-01-15 12:40] LABS: Absolute Lymphocyte Count 2.18 X10^3/uL (0.83-4.51); Absolute Neutrophil Count 4.2 X10^3/uL (2.0-7.7); Basophil# 0.04 X10^3/uL; Basophil% 0.5 % (0-1); Eosinophil# 0.26 X10^3/uL; Eosinophils% 3.4 % (0-5); Hemoglobin 16.5 g/dL (13.0-16.5); Lymphocyte # 2.18 X10^3/ul (0.83-4.51); Lymphocyte % 28.8 % (19-41); Mean Corp Hgb Conc 33.7 g/dL (32-36); Mean Corpuscular Hgb 30.2 pg (27.0-32.0); Mean Corpuscular Volume 89.6 fL (80-94); Mean Platelet Vol. 9.3 fl (6.2-12.0); Monocyte# 0.85 X10^3/uL; Monocyte% 11.2 % (0-10); NRBC Flagged by Analyzer 0.3 % (0-5); Neutrophil % 55.6 % (47-70); Platelet Count 299 K/mm3 (150-450); RBC Distribution Width CV 13.3 % (11.6-14.6); RBC Distribution Width SD 43.4 fl (35.1-43.9); Red Blood Count 5.47 M/mm3 (4.6-6.2); White Blood Count 7.6 K/mm3 (4.4-11.0)
--- NOTE | 2025-01-15 12:54 | RAD_ITS ---
EXAM: XR Chest, 2 Views CLINICAL INDICATION: SOB TECHNIQUE: Frontal and lateral views of the chest. COMPARISON: No relevant prior studies available. FINDINGS: LUNGS AND PLEURAL SPACES: Unremarkable. No consolidation. No pneumothorax. HEART: Unremarkable. No cardiomegaly. MEDIASTINUM: Unremarkable. Normal mediastinal contour. BONES/JOINTS: Unremarkable. No acute fracture. RAD/Chest PA and Lateral IMPRESSION: No acute cardiopulmonary process. Reading Location: [facility]
--- NOTE | 2025-01-15 12:54 | RAD_ITS ---
EXAM: XR Chest, 2 Views CLINICAL INDICATION: SOB TECHNIQUE: Frontal and lateral views of the chest. COMPARISON: No relevant prior studies available. FINDINGS: LUNGS AND PLEURAL SPACES: Unremarkable. No consolidation. No pneumothorax. HEART: Unremarkable. No cardiomegaly. MEDIASTINUM: Unremarkable. Normal mediastinal contour. BONES/JOINTS: Unremarkable. No acute fracture. RAD/Chest PA and Lateral IMPRESSION: No acute cardiopulmonary process. Reading Location: [facility]
[2025-01-15 13:06] VITALS: BP 143/67; PULSE 71; RESP 28; O2SAT 95
[2025-01-15] MEDS: Furosemide 40 MG/4 ML Vial IV (13:06)
[2025-01-15 13:40] LABS: Anion Gap 11 (5-15); BUN 16 mg/dL (4-19); BUN/Creat Ratio 13.3 RATIO (10-20); Calcium,Total 9.3 mg/dL (7.6-11.0); Carbon Dioxide 24.7 mmol/L (21.0-32.0); Chloride 103 mmol/L (98-108); EST Glomerular Filtration Rate 70 (>60); Estimated Creatinine Clearance 110.86 ml/min (50-250); Glucose 176 mg/dL (70-99); Potassium 4.5 mmol/L (3.3-5.1); Sodium Level 138 mmol/L (133-145)
[2025-01-15 13:58] VITALS: BP 136/74; PULSE 76; RESP 24; TEMP 36.8; O2SAT 96
== END 2025-01-15 13:59 | disposition home or self-care (01) ==
PROVIDERS: Emergency Provider Emergency Medicine; PCP Internal Medicine; Visit Provider Emergency Medicine
DX: I11.0 Hypertensive heart disease with heart failure (principal); I50.20 Unspecified systolic (congestive) heart failure; E11.9 Type 2 diabetes mellitus without complications; R06.02 Shortness of breath; E78.5 Hyperlipidemia, unspecified; I25.10 Atherosclerotic heart disease of native coronary artery without angina pectoris; F17.200 Nicotine dependence, unspecified, uncomplicated; G47.30 Sleep apnea, unspecified; Z99.89 Dependence on other enabling machines and devices; Z79.899 Other long term (current) drug therapy; Z79.84 Long term (current) use of oral hypoglycemic drugs; R63.5 Abnormal weight gain
CPT/HCPCS: 71046; 80048; 85025; 93005; 96374; 99284; A4216; J1938